=== PATIENT | female | born 1990 | race Caucasian/White ===

== ENCOUNTER 2017-10-16 10:36 | Emergency (ER) | payer OTHER ==
[~2017-10-16] VITALS: Ht 172.7 cm; Wt 70.3 kg
[2017-10-16] MEDS ORDERED: KETOROLAC TROME10 MG PO (12:38)
== END 2017-10-16 12:52 | disposition home or self-care (01) ==
LOC: ED 10:36
DX: R10.31 Right lower quadrant pain (principal)
CPT/HCPCS: 80053; 81001; 82150; 83690; 84703; 85025; 96374; 99283; J2405; J7120

== ENCOUNTER 2018-10-05 05:40 | Day surgery (SDC) | payer OTHER ==
[~2018-10-05] VITALS: Ht 172.7 cm; Wt 70.3 kg
[~2018-10-05 05:40] MED LIST: ADVIL LIQUI-GE200 MG PO; KETOROLAC TROME10 MG PO; TYLENOL EXTRA500 MG PO
--- NOTE | 2018-10-05 08:11 | NUR ---
PT BYPASSES PACU AND COMES BACK TO . SHE HAD NO SEDATION, ONLY A SADDLE BLOCK AND FENTANYL. SHE IS DENYING ANY PAIN AT THIS TIME, ONLY REPORTING DISCOMFORT FROM THE SADDLE BLOCK. SHE IS AWAKE, PARENTS ARE AT THE BEDSIDE. PT IS REQUESTING WATER. NO ADDITIONAL NEEDS AT THIS TIME.
[2018-10-05] MEDS ORDERED: IBUPROFEN600 MG PO (08:17)
[2018-10-05] MEDS ORDERED: OXYCODON-ACETA1 EAC2 PO (08:17)
[2018-10-05] MEDS ORDERED: MAPAP325 MG PO (08:18)
--- NOTE | 2018-10-05 09:00 | NUR ---
PT IS GIVEN VERBAL DC INSTRUCTIONS WITH HER PARENTS PRESENT. THEY ALL VERBALIZE UNDERSTANDING. QUESTIONS ARE ASKED AND ANSWERED. VOLUNTEER TAKES PT OUT TO THE VEHICLE VIA WC.
--- NOTE | 2018-10-05 18:08 | OR ---
[facility] [address] [place], [place] [address] Signed DATE OF OPERATION: 10/05/2018 SURGEON: Yazan Hankins MD PREOPERATIVE DIAGNOSIS: Pilonidal disease. POSTOPERATIVE DIAGNOSIS: Pilonidal cyst with abscess. PROCEDURE: Pilonidal cystectomy including abscess drainage and excision. ANESTHESIA: Saddle block, Aubree Orellana CRNA, and local 20 mL of 0.25% Marcaine with epinephrine. 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 She is noted to have drainage of inter-lev cleft and was identified as having pilonidal disease. Examination showed at least a few pilonidal sinuses. When seen in the office a few days ago, she showed no sign of erythema and only minimal local tenderness. She has been using Epsom salts and soakings. She is admitted at this time to undergo excision of the site. She understands the risks of bleeding, infection, need for prolonged wound care and so forth. If simple excision and wound packing does not allow for complete healing, a cleft flap procedure may be considered. She does not have an excessively deep inter- cleft nor excessive hair otherwise. She understands all of this and wished to proceed. FINDINGS: Purulent material was noted beneath the skin in the region of the pilonidal disease. Elliptical excision was undertaken to the post-sacral fascia with complete excision of all the tissue of concern. There were no complications. DESCRIPTION OF PROCEDURE: The patient was brought to the operating room after undergoing a saddle block anesthetic in the Day Surgery area. Preoperative antibiotic cefoxitin was given. She was placed in a prone jackknife position and buttocks taped apart. The area was prepared with a DuraPrep solution and draped sterilely. Probing of the pilonidal sinus was undertaken, showing a cavity beneath the skin consistent with pilonidal cyst. Elliptical incision was undertaken with a #15 blade, showing a purulent material exuding from the depths of Electronically Signed By: YAZAN HANKINS MD 10/05/18 1808 PATIENT NAME: ELICIA JIMENEZ OPERATIVE REPORT DATE OF : [birth year] REPORT #: [id number] PHYSICIAN: YAZAN HANKINS MD PCP: MAKAYLA IGLESIAS PAC REPORT IS CONFIDENTIAL AND NOT TO BE RELEASED WITHOUT AUTHORIZATION [facility] [address] [place] [address] Signed the wound in a small amount. Excision was carried forth to the post-sacral fascia with electrocautery, maintaining most minimal amount of excision as possible. Complete excision was accomplished. The remaining tissue was healthy. Electrocautery was used for hemostasis. The edges of the wound were additionally shaved with a safety razor, which was saved for the patient for a postoperative use as well. A 20 mL of 0.25% Marcaine with epinephrine was injected locally. A single ply gauze was applied to the depths of the wound. Tape was applied. The patient was returned to a supine position and transferred to recovery room in good condition. ESTIMATED BLOOD LOSS: Minimal. COMPLICATIONS: None. Yazan Hankins MD JM/MODL /[id number] cc: Hermilo Pablo Copies: ~ Electronically Signed By: YAZAN HANKINS MD 10/05/18 1808 PATIENT NAME: ELICIA JIMENEZ OPERATIVE REPORT DATE OF : [birth year] REPORT #: [id number] PHYSICIAN: YAZAN HANKINS MD PCP: MAKAYLA IGLESIAS PAC REPORT IS CONFIDENTIAL AND NOT TO BE RELEASED WITHOUT AUTHORIZATION
== END 2018-10-05 09:00 | disposition home or self-care (01) ==
LOC: DS 05:40 → OPS 05:40 → DS 06:45 → OPS 09:00
PROVIDERS: Surgery
PROC: 0HB8XZZ Excision of Buttock Skin, External Approach (ICD-10-PCS; principal; 2018-10-05 06:45)
DX: L05.01 Pilonidal cyst with abscess (principal)
CPT/HCPCS: 00300; J0694; J2250; J2405; J3010; J7060; J7120

== ENCOUNTER 2020-12-27 06:15 | Day surgery (SDC) | payer BC ==
[~2020-12-27] VITALS: Ht 172.7 cm; Wt 74.1 kg
[~2020-12-27 06:15] MED LIST changes: +IBUPROFEN600 MG PO; +MAPAP325 MG PO; +OXYCODON-ACETA1 EAC2 PO; +SPRINTEC1 EACH PO; +ZYRTEC10 MG PO
[2020-12-27] MEDS ORDERED: OXYCODON-ACETA1 EAC2 PO (08:51)
[2020-12-27] MEDS ORDERED: IBUPROFEN600 MG PO (08:51)
[2020-12-27] MEDS ORDERED: ACETAMINOPHEN500 MG PO (08:51)
--- NOTE | 2020-12-27 08:55 | NUR ---
12/27/20 0855 Monisha Degroot 0894 PATIENT ARRIVES TO PACU, RESTING WITH EYES CLOSED. RESP EVEN AND UNLABORED, MASK AT 6 LITERS. OPENS EYES WITH VERBAL STIMULI, BACK TO SLEEP WHEN NOT STIMULATED.
--- NOTE | 2020-12-27 10:55 | NUR ---
MEDICATED FOR PAIN AND NAUSEA PER EMAR. OK TO USE PACU MED ORDERS IN PHASE 2 RECOVERY PER YAZAN THORNTON CRNA. PT REPORTS THE ROOM IS SPINNING A BIT WHEN SHE MOVES. DRESSINGS REMAIN UNCHAINGED SINCE ENTRY TO PHASE 2
--- NOTE | 2020-12-27 11:29 | NUR ---
amb to br voids 600mls yellow urine. tolerated being up and requests to go home.
--- NOTE | 2020-12-27 21:04 | OR ---
[facility] [address] [place], [place] [address] Signed DATE OF OPERATION: 12/27/2020 SURGEON: Yazan Hankins MD PREOPERATIVE DIAGNOSIS: Chronic acalculous cholecystitis. POSTOPERATIVE DIAGNOSIS: Chronic acalculous cholecystitis. PROCEDURES: 1. Laparoscopic cholecystectomy with intraoperative cholangiogram. 2. Surgeon-directed fluoroscopy. ANESTHESIA: General endotracheal; Yazan Peacock CRNA and local 20 mL of 0.25% Marcaine with epinephrine. 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 She has had a rather typical biliary colic symptoms including right subcostal and epigastric pain particularly worse following fatty meals. A gallbladder ultrasound was performed under the direction of her primary provider, MAMIE Langford. This showed no sign of stones. She subsequently underwent a CCK-HIDA test which showed an ejection fraction of 61% (normal), but with marked reproduction of her symptoms. She does have family history of biliary disease and other family members requiring cholecystectomy. She is admitted at this time to undergo cholecystectomy preferred by laparoscopic approach. She understands the risks of bleeding, infection, bile duct injury, need for open procedure and most importantly failure to cure her symptoms. She understands and she wished to proceed. FINDINGS: The gallbladder was chronically inflamed. There was an enlarged pericholecystic lymph node as well. Cholangiogram was normal. The gallbladder once excised showed chronic inflammatory change of the mucosa, but no other findings of concern. DESCRIPTION OF PROCEDURE: The patient was brought to the operating room, given a general endotracheal anesthetic. Preoperative antibiotic Ancef was given. Sequential compression device stockings were used and heparin subcutaneously administered. After satisfactory general endotracheal Electronically Signed By: YAZAN HANKINS MD 12/27/20 2104 PATIENT NAME: ELICIA JIMENEZ OPERATIVE REPORT DATE OF : [birth year] REPORT #: [id number] PHYSICIAN: YAZAN HANKINS MD PCP: MAKAYLA IGLESIAS PAC REPORT IS CONFIDENTIAL AND NOT TO BE RELEASED WITHOUT AUTHORIZATION [facility] [address] [place], [place] [address] Signed anesthesia, the abdomen is prepared with a chlorhexidine solution and draped sterilely. An infraumbilical incision was made and using an open Sunny cannula technique, pneumoperitoneum achieved to a level of 14 mmHg with carbon dioxide gas. Intraabdominal inspection showed no sign of ascites or carcinomatosis. The gallbladder was obscured from view initially. The liver was normal. Three additional trocars were placed in usual configuration in the subxiphoid, right midclavicular, and right anterior axillary line. The gallbladder was elevated cephalad and retracted laterally. An enlarged pericholecystic lymph node was noted. Using blunt and electrocautery dissection, the triangle of Calot was dissected free. Ultimately, a clip was applied across gallbladder cystic duct junction and a transverse choledochotomy in made the cystic duct. Egress of the cystic duct showed clear yellow bile. Using an Mckeon type cholangiocatheter, intraoperative cholangiography was undertaken showing free flow of contrast in biliary tree with prompt emptying into the duodenum. Catheter was removed and the cystic duct was triply clipped and divided and the gallbladder dissected free in a retrograde fashion using electrocautery. The gallbladder was extracted through the infraumbilical port site without problem, opened on the back table and found to have chronic inflammatory change with no stones. There was no sign of neoplasm. Irrigation was undertaken in subhepatic space showed no sign of bile leak bleeding or other problems. Excess irrigation of fluid was suctioned free. A small amount of cautery was applied to the smaller trocar sites on the right side for hemostasis. Once hemostasis was assured, all trocars were removed. Plan was then made for closure of the incisions. The infraumbilical fascial incision was reapproximated with interrupted 0 Vicryl suture. A 20 mL of 0.25% Marcaine with epinephrine was injected locally to all trocar site. The skin was closed with interrupted 3-0 Vicryl. Steri-Strips were applied. The patient is anticipated to be extubated in the operating room and transferred to the recovery room in good condition. BLOOD LOSS: Minimal. COMPLICATIONS: None. MD CRISTY Horner/GILBERTL Electronically Signed By: YAZAN HANKINS MD 12/27/20 2104 PATIENT NAME: ELICIA JIMENEZ OPERATIVE REPORT DATE OF : [birth year] REPORT #: [id number] PHYSICIAN: YAZAN HANKINS MD PCP: MAKAYLA IGLESIAS PAC REPORT IS CONFIDENTIAL AND NOT TO BE RELEASED WITHOUT AUTHORIZATION [address] [address] Signed /[id number] cc: MAMIE Langford Copies: ~ Electronically Signed By: YAZAN HANKINS MD 12/27/20 2104 PATIENT NAME: ELICIA JIMENEZ OPERATIVE REPORT DATE OF : [birth year] REPORT #: [id number] PHYSICIAN: YAZAN HANKINS MD PCP: MAKAYLA IGLESIAS PAC REPORT IS CONFIDENTIAL AND NOT TO BE RELEASED WITHOUT AUTHORIZATION
--- NOTE | 2020-12-28 14:50 | PATH ---
[facility] [address] [place], [place] [address] Signed SPECIMEN(S): A GALLBLADDER SPECIMEN SOURCE: A. GALLBLADDER CLINICAL HISTORY: Pre: Biliary colic, RUQ pain. Post: Laparoscopic cholecystectomy. FINAL PATHOLOGIC DIAGNOSIS: Gallbladder, cholecystectomy: - Chronic cholecystitis. NAL:cml:C2NR MICROSCOPIC EXAMINATION: Histologic sections of all submitted blocks are examined by light microscopy. These findings, together with the gross examination, support the pathologic diagnosis. GROSS DESCRIPTION: The specimen, labeled "CS, gallbladder," is received in formalin and consists of Specimen: Previously opened gallbladder. Dimensions: 5.3 cm in length and 4.2 cm in inner circumference. Serosa: Violaceous and smooth. Cystic Duct: Unobstructed. Calculi: No calculi are grossly identified within the gallbladder or within the container. Mucosa: Green-owens and velvety. Wall thickness: 0.2 cm. Lymph node: No pericystic lymph nodes are grossly identified. Additional: None. Toddler Teacher sections are submitted in cassette (A1). JS (under the direct supervision of a pathologist) The Gross Description was prepared using a voice recognition system. The report was reviewed for accuracy; however, sound-alike word errors, addition and/or deletions may occur. If there is any question about this report, please contact Client Services. PERFORMING LABORATORY: The technical component was performed by [facility], [address] [place] [address] (Quality Control Lead: Sherri Tian MD; CLIA# [id number]). PATIENT NAME: ELICIA JIMENEZ PATHOLOGY DATE OF : [birth year] REPORT #: [id number] PHYSICIAN: NICK VERDUGO PCP: MAKAYLA IGLESIAS PAC REPORT IS CONFIDENTIAL AND NOT TO BE RELEASED WITHOUT AUTHORIZATION [facility] [address] [place], [place] [address] Signed [facility], [address] [place] [address], [place] [address] (CLIA# [id number]). Diagnostician: Luana Sanchez MD Pathologist Electronically Signed 12/28/2020 Copies: ~ PATIENT NAME: ELICIA JIMENEZ PATHOLOGY DATE OF : [birth year] REPORT #: [id number] PHYSICIAN: NICK VERDUGO PCP: MAKAYLA IGLESIAS PAC REPORT IS CONFIDENTIAL AND NOT TO BE RELEASED WITHOUT AUTHORIZATION
== END 2020-12-27 11:30 | disposition home or self-care (01) ==
LOC: DS 06:15
PROVIDERS: ATTEND Surgery
PROC: BF10YZZ Fluoroscopy of Bile Ducts using Other Contrast (ICD-10-PCS; 2020-12-27)
PROC: 0FT44ZZ Resection of Gallbladder, Percutaneous Endoscopic Approach (ICD-10-PCS; principal; 2020-12-27 06:45)
DX: K81.1 Chronic cholecystitis (principal); Z83.79 Family history of other diseases of the digestive system
CPT/HCPCS: 00790; 74300; A9270; J0690; J1644; J2405; J2550; Q9967

== ENCOUNTER 2022-10-16 07:49 | Day surgery (SDC) | payer BC ==
[~2022-10-16] VITALS: Ht 172.7 cm; Wt 71.0 kg
[~2022-10-16 07:49] MED LIST changes: +ACETAMINOPHEN500 MG PO; +AVIANE1 EACH PO; +MULTI VITAMIN1 EACH PO
[2022-10-16] MEDS ORDERED: ZYRTEC-D TABLE1 EACH PO (08:27)
[2022-10-16 08:33] VITALS: BP 125/90
[2022-10-16 10:35] VITALS: BP 127/81
--- NOTE | 2022-10-17 15:24 | OR ---
[facility] [address] [place], [place] [address] Signed DATE OF OPERATION: 10/16/2022 SURGEON: Yazan Hankins MD PREOPERATIVE DIAGNOSES: 1. Persistent epigastric and right upper abdominal pain. 2. History of laparoscopic cholecystectomy for acalculous cholecystitis 2020 (December). POSTOPERATIVE DIAGNOSES: 1. Poor flap valve without obvious esophagitis. 2. Bile within the stomach; mild antral gastritis. PROCEDURE: Esophagogastroduodenoscopy with biopsy. ANESTHESIA: Intravenous sedation, fentanyl 100 mcg, Versed 4 mg. INDICATION: This 32-year-old white woman is a patient of MAMIE Langford. She underwent laparoscopic cholecystectomy for typical biliary symptoms in 2020 (December). She did have relief of symptoms of her right upper abdominal pain at that time. Pathologic findings included chronic cholecystitis, but no stones. Cholangiogram was normal. She has since developed recurrent right upper abdominal and epigastric pain problems. She has had some treatment with PPI medication, which was minimally taken and with uncertain actual benefit. She has no associated dysphagia. She does have family history of duodenal and stomach ulcer she thinks. She is admitted at this time to undergo upper endoscopy to better characterize her problem. She understands the risk of bleeding, infection, and perforation. FINDINGS: The esophageal mucosa appeared normal. There was no Freeman's epithelium. There was a poor flap valve consistent with small hiatal hernia. There was bile within the stomach and mild antral gastritis; the underlying diagnosis may well represent bile gastritis. Duodenum was overall normal. The ampulla was well visualized and normal as well. CLOtest was negative 15 minutes post procedure. DESCRIPTION OF PROCEDURE: The patient was brought to the endoscopy suite and placed in the lateral decubitus Electronically Signed By: YAZAN HANKINS MD 10/17/22 1524 PATIENT NAME: ELICIA JIMENEZ OPERATIVE REPORT DATE OF : [birth year] REPORT #: [id number] PHYSICIAN: YAZAN HANKINS MD PCP: MAKAYLA IGLESIAS PAC REPORT IS CONFIDENTIAL AND NOT TO BE RELEASED WITHOUT AUTHORIZATION [facility] [address] [place], [place] [address] Signed position, given topical lidocaine hypopharyngeal anesthesia. Intravenous sedation was administered with fentanyl and Versed to the point of slurred speech and nystagmus. A bite block was placed. An Olympus video upper endoscope was passed in the hypopharynx. The vocal cords were entirely normal. Scope was advanced to the esophagus, throughout its length it appeared normal. Scope was advanced to the stomach, which was insufflated with air. Rugal folds were normal, though there was bile within the antrum and mild antral gastritis was noted. Bile was suctioned free. The pylorus was normal and scope was passed through into the duodenum, which was entirely normal. Biopsies were taken of the distal duodenum to assess for celiac disease and withdrawn and biopsies undertaken of the duodenal bulb. There was no sign of ulceration. The ampulla was easily visualized and normal. The scope was withdrawn. Biopsies were then taken of the antrum. There was no sign of actual ulcer, but mild inflammation was noted. Retroflexed view was undertaken showing normal rugal folds. The GE junction was somewhat attenuated and retroflexed view upon withdrawal of scope allowed easy passage of the scope into the distal esophagus, indicative of a poor flap valve consistent with small hiatal hernia. The scope was straightened and withdrawn and biopsies then taken of the distal esophagus and midesophagus, though they both appeared histologically normal. Scope was removed and the patient was taken to the recovery room in good condition. CONCLUDING DIAGNOSIS: Uncertain etiology of recurrent pain problem. This may represent bile reflux gastritis. PLAN: We will empirically treat with PPI medication for the time being and assess pathology reports in the near future. There is locally and nationally a shortage of Carafate and we will not initiate that medication at this time. She will return to see me in the office in 4 to 6 weeks. MD CRISTY Horner/GILBERTL /[id number] cc: MAMIE Langford Electronically Signed By: YAZAN HANKINS MD 10/17/22 1524 PATIENT NAME: ELICIA JIMENEZ OPERATIVE REPORT DATE OF : [birth year] REPORT #: [id number] PHYSICIAN: YAZAN HANKINS MD PCP: MAKAYLA IGLESIAS PAC REPORT IS CONFIDENTIAL AND NOT TO BE RELEASED WITHOUT AUTHORIZATION [facility] [address] [place], [place] [address] Signed Copies: ~ Electronically Signed By: YAZAN HANKINS MD 10/17/22 1524 PATIENT NAME: ELICIA JIMENEZ OPERATIVE REPORT DATE OF : [birth year] REPORT #: [id number] PHYSICIAN: YAZAN HANKINS MD PCP: MAKAYLA IGLESIAS PAC REPORT IS CONFIDENTIAL AND NOT TO BE RELEASED WITHOUT AUTHORIZATION
--- NOTE | 2022-10-23 17:10 | PATH ---
[facility] [address] [facility] [place], [place] [address] Signed SPECIMEN(S): A DUODENAL BIOPSY SPECIMEN(S): B DUODENAL BULB BIOPSY SPECIMEN(S): C ANTRUM/ANTRAL BIOPSY SPECIMEN(S): D LOWER ESOPHAGEAL BIOPSY SPECIMEN(S): E MID ESOPHAGEAL BIOPSY SPECIMEN SOURCE: A. DUODENAL BIOPSY B. DUODENAL BULB BIOPSY C. ANTRUM/ANTRAL BIOPSY D. LOWER ESOPHAGEAL BIOPSY E. MID ESOPHAGEAL BIOPSY CLINICAL HISTORY: EGD with biopsy. FINAL PATHOLOGIC DIAGNOSIS: A. Duodenum, biopsy: - No significant histopathology. B. Duodenal bulb, biopsy: - No significant histopathology. 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 C. Stomach, antrum, biopsy: - No significant histopathologic alterations. D. Lower esophagus, biopsy: - Portions of unremarkable squamous mucosa. E. Mid esophagus, biopsy: - Portions of unremarkable squamous mucosa. COMMENT: Regarding specimens A and B, the sections from the duodenal biopsies show portions of duodenal mucosa with long finger-like villi. There is no villous atrophy, crypt hyperplasia or intraepithelial lymphocytosis, making a diagnosis of celiac disease unlikely. There is no evidence of peptic duodenitis, microorganisms, abnormal infiltrates or neoplasia. Regarding specimen C, the sections through the gastric biopsies show fragments of histologically unremarkable antral mucosa. There is no evidence of acute or chronic inflammation. There is no evidence of H. pylori, intestinal metaplasia, abnormal infiltrates or neoplasia. PATIENT NAME: ELICIA JIMENEZ PATHOLOGY DATE OF : [birth year] REPORT #: [id number] PHYSICIAN: NICK PATHOLOGY PCP: MAKAYLA IGLESIAS PAC REPORT IS CONFIDENTIAL AND NOT TO BE RELEASED WITHOUT AUTHORIZATION [facility] [address] [place], [place] [address] Signed Regarding specimens D and E, the esophageal biopsies show normal-appearing squamous epithelium. There is no evidence of acute or chronic inflammation. TWK:sagar:C2NR MICROSCOPIC EXAMINATION: Histologic sections of all submitted blocks are examined by light microscopy. These findings, together with the gross examination, support the pathologic diagnosis. GROSS DESCRIPTION: A. The specimen, labeled and designated "Schuening, duodenal biopsy," is received in formalin and consists of three fragments of owens soft tissue ranging from 0.1 to 0.3 cm in greatest dimension. The tissue is entirely submitted in (A1). B. The specimen, labeled and designated "Schuening, duodenal bulb biopsy," is received in formalin and consists of a single fragment of pink-owens soft tissue measuring 0.6 x 0.2 x 0.2 cm. The tissue is entirely submitted in (B1). C. The specimen, labeled and designated "Schuening, antrum biopsy," is received in formalin and consists of two fragments of pink-owens soft tissue measuring 0.3 x 0.2 x 0.1 cm and 0.6 x 0.2 x 0.2 cm. The tissue is entirely submitted in (C1). D. The specimen, labeled and designated "Schuening, lower esophageal biopsy," is received in formalin and consists of two fragments of white-owens soft tissue measuring 0.3 and 0.4 cm in greatest dimension. The tissue is entirely submitted in (D1). E. The specimen, labeled and designated "Schuening, mid esophageal biopsy," is received in formalin and consists of three fragments of white-owens soft tissue ranging from 0.2 x 0.1 x 0.1 cm to 0.6 x 0.1 x 0.1 cm. The tissue is entirely submitted in (E1). JM (under the direct supervision of a pathologist) The Gross Description was prepared using a voice recognition system. The report was reviewed for accuracy; however, sound-alike word errors, addition and/or deletions may occur. If there is any question about this report, please contact Client Services. PERFORMING LABORATORY: The technical component was performed by [facility], [address] [place] [id number] (CLIA# [id number]). The professional interpretation was performed by [facility], [facility], [address] [place] [place] [address] (CLIA#: [id number]). PATIENT NAME: ELICIA JIMENEZ PATHOLOGY DATE OF : [birth year] REPORT #: [id number] PHYSICIAN: NICK VERDUGO PCP: MAKAYLA IGLESIAS PAC REPORT IS CONFIDENTIAL AND NOT TO BE RELEASED WITHOUT AUTHORIZATION [facility] [address] [place], [place] [address] Signed Diagnostician: Jerry Christine MD Pathologist Electronically Signed 10/23/2022 Copies: ~ PATIENT NAME: ELICIA JIMENEZ PATHOLOGY DATE OF : [birth year] REPORT #: [id number] PHYSICIAN: NICK PATHOLOGY PCP: MAKAYLA IGLESIAS PAC REPORT IS CONFIDENTIAL AND NOT TO BE RELEASED WITHOUT AUTHORIZATION
== END 2022-10-16 10:42 | disposition home or self-care (01) ==
LOC: DS 07:49 → OPS 07:49 → DS 09:00 → OPS 10:42 → DS 13:00
PROVIDERS: ATTEND Surgery
PROC: 0DB68ZX Excision of Stomach, Via Natural or Artificial Opening Endoscopic, Diagnostic (ICD-10-PCS; 2022-10-16)
PROC: 0DB28ZX Excision of Middle Esophagus, Via Natural or Artificial Opening Endoscopic, Diagnostic (ICD-10-PCS; 2022-10-16)
PROC: 0DB38ZX Excision of Lower Esophagus, Via Natural or Artificial Opening Endoscopic, Diagnostic (ICD-10-PCS; 2022-10-16)
PROC: 0DB98ZX Excision of Duodenum, Via Natural or Artificial Opening Endoscopic, Diagnostic (ICD-10-PCS; principal; 2022-10-16 09:00)
DX: K29.70 Gastritis, unspecified, without bleeding (principal); Z90.49 Acquired absence of other specified parts of digestive tract
CPT/HCPCS: 84703; 99153; G0500; J2250; J3010; J7121